=== PATIENT | male | born 1975 | race Caucasian/White ===

== ENCOUNTER 2020-12-09 18:26 | Emergency (ER) | payer OTHER ==
[~2020-12-09] VITALS: Ht 170.2 cm; Wt 69.1 kg
[2020-12-09 20:05] VITALS: BP 127/79; PULSE 48; TEMP 98.1
== END 2020-12-09 19:55 | disposition home or self-care (01) ==
LOC: COL.ER 18:26
DX: S61.011A Laceration without foreign body of right thumb without damage to nail, initial encounter (principal); Z23 Encounter for immunization; W27.0XXA Contact with workbench tool, initial encounter